=== PATIENT | female | born 1945 | race Caucasian/White ===

== ENCOUNTER → 2016-12-25 | Outpatient (CLI) | payer OTHER ==
[~2016-12-25] MED LIST: CHOL200027 PO; FOLI1TAB7 PO; HYDR200T5 PO; METH2.5T PO; MISCTAB78 PO; NAPR1TAB9 PO; OXYC-57 PO; PRED-301 PO; WARF2TAB PO
== END | disposition home or self-care (01) ==
LOC: C.RDSM 07:38
PROVIDERS: ATTEND Physical Medicine & Rehabilitation Sports Medicine
DX: M17.11 Unilateral primary osteoarthritis, right knee (principal)

== ENCOUNTER 2017-01-24 04:47 | Inpatient (IN) | payer OTHER ==
[2017-01-05 09:42] VITALS: BMI 38.0
--- NOTE | 2017-01-05 10:23 | PAT Medication Instructions ---
Service Date Jan 05, 2017. Current Home Medication List Cholecalciferol (Vitamin D-3), 1 TAB PO QAM Folic Acid (Folvite), 1 TAB PO QAM Hydroxychloroquine Sulfate (Plaquenil), 400 MG PO QAM Methotrexate (Methotrexate), 10 TABS PO WK Misc Natural Products (Osteo Bi-Flex Advanced Do), 1 TAB PO QAM Naproxen (Aleve), 220 MG PO DAILY PRN for Pain Prednisone (Prednisone), 5 MG PO QAM Medication Instructions For Your Scheduled Surgery - Hold the following medications 2 weeks prior to surgery: Misc Natural Products (Osteo Bi-Flex Advanced Do), 1 TAB PO QAM - Check with your prescriber regarding: Methotrexate (Methotrexate), 10 TABS PO WK Check with your surgeon regarding:: Naproxen (Aleve), 220 MG PO DAILY PRN for Pain - Hold the following medications the morning of surgery: Cholecalciferol (Vitamin D-3), 1 TAB PO QAM Folic Acid (Folvite), 1 TAB PO QAM - Take the following medications the morning of surgery with a sip of water: Prednisone (Prednisone), 5 MG PO QAM Hydroxychloroquine Sulfate (Plaquenil), 400 MG PO QAM If you have any questions please call us at [phone] or [phone] or [phone]
--- NOTE | 2017-01-05 11:10 | DIAGNOSTIC IMAGING REPORT ---
CHEST PREADMISSION(PA/LAT) CLINICAL HISTORY: Preoperative chest COMPARISON STUDY: No previous studies for comparison. FINDINGS: The cardiac and mediastinal contours are normal. There is no evidence of focal pulmonary consolidation. There is no evidence of failure. No pleural effusions are visualized.[ There is equivocal old left eighth and fracture. IMPRESSION: No active disease in the chest. Electronically signed by: Fernie Macias M.D. 01/05/2017 11:08 AM Dictated Date/Time: 01/05/2017 11:07 AM
--- NOTE | 2017-01-05 11:31 | DIAGNOSTIC IMAGING REPORT ---
LATERAL VIEW OF THE CERVICAL SPINE WITH FLEXION AND EXTENSION CLINICAL HISTORY: Rheumatoid arthritis. Preoperative study COMPARISON STUDY: No previous studies for comparison. FINDINGS: There are moderate multilevel degenerative changes most pronounced at the C5-6 level. No acute fractures are visualized on this lateral study. There is no instability on flexion or extension. IMPRESSION: Moderately advanced degenerative change. No evidence of instability on flexion or extension. Electronically signed by: Fernie Macias M.D. 01/05/2017 11:30 AM Dictated Date/Time: 01/05/2017 11:29 AM
[2017-01-05 11:52] LABS: BASO % 0.5 %; BASO ABS # 0.04 K/uL (0-0.2); COMPLETE YES; EOS % 1.4 %; IG% 0.2 %; LYMPH % 11.4 %; LYMPH ABS # 0.92 K/uL (1.2-3.4); MEAN CELL VOLUME 96.2 fL (80-100); MEAN CORPUSCULAR HEMOGLOBIN 30.9 pg (25-34); MEAN CORPUSCULAR HGB CONC 32.1 g/dl (32-36); MONO % 6.2 %; NEUT % 80.3 %; PLATELET COUNT 275 K/uL (130-400); RED BLOOD COUNT 4.47 M/uL (4.2-5.4); WHITE BLOOD COUNT 8.05 K/uL (4.8-10.8)
[2017-01-05 11:54] LABS: MANUAL MICROSCOPIC REQUIRED? NO; REVIEW REQ? NO; URINE APPEARANCE CLEAR (CLEAR); URINE BILIRUBIN NEG (NEG); URINE COLOR YELLOW; URINE EPITHELIAL CELL AUTO >30 /lpf (0-5); URINE NITRITE NEG (NEG); URINE PH 5.5 (4.5-7.5); URINE SPECIFIC GRAVITY 1.025 (1.000-1.030); UROBILINOGEN NEG (NEG)
[2017-01-05 11:59] LABS: BUN/CREATININE RATIO 23.6 (10-20); CREATININE 0.76 mg/dl (0.60-1.20)
[2017-01-05 12:01] LABS: PARTIAL THROMBOPLASTIN RATIO 1.1; PROTHROMBIN TIME (PATIENT) 10.4 SECONDS (9.0-12.0)
--- NOTE | 2017-01-12 15:14 | HISTORY & PHYSICAL EXAMINATION ---
DATE OF ADMISSION: 01/24/2017 CHIEF COMPLAINT: Right knee pain. HISTORY OF PRESENT ILLNESS: This 71-year-old white female presents to the office with complaints of right knee pain that she has had since February 2016. No specific injury. She previously had this knee scoped in 2006. Pain is worse with weightbearing. It is affecting her ADLs. She denies any catching or locking. No buckling. Pain is primarily over the medial aspect of the leg, but does radiate the anterior part as well. She has tried conservative care measures including ice, elevation, activity modification, cortisone injections, and viscosupplementation without lasting relief. She elects to proceed with surgical intervention in hopes of alleviating her pain. Preoperative imaging has been obtained. PAST MEDICAL HISTORY: Significant for rheumatoid arthritis, osteoarthritis, low back pain, and obesity. PREVIOUS SURGERIES: Right knee arthroscopy in 2006, laparotomy, left eye surgery, appendectomy, dental surgery, EGD and colonoscopy. ALLERGIES: KNOWN ALLERGY TO PRAVASTATIN, WHICH CAUSES MUSCLE AND BACK PAIN. CURRENT MEDICATIONS: Valacyclovir 1 gram p.r.n., methotrexate 2.5 mg 10 tablets p.o. weekly, folic acid 1 mg p.o. daily, prednisone 5 mg p.o. daily, vitamin D daily, Plaquenil 200 mg 2 tablets p.o. daily, and Aleve 220 mg p.r.n. SOCIAL HISTORY: The patient is . No tobacco use. Retired. Former smoker. No ETOH use. FAMILY HISTORY: Significant for heart disease, cancer and diabetes. REVIEW OF SYSTEMS: Significant for above stated conditions, otherwise unremarkable. PHYSICAL EXAMINATION: GENERAL: Well-developed and well-nourished elderly white female in no acute distress. Sitting on a bed. Alert and oriented. SKIN: Warm and dry with good turgor. No rashes or lesions. No ecchymosis or erythema. HEENT: Normocephalic and atraumatic. Eyes, PERRLA and EOMI. Nares patent bilaterally without turbinate enlargement. Oropharynx without erythema or exudate. No lesions noted. Uvula midline. Oral mucosa moist. Good dentition. Fillings are noted. HEART: RRR. No MGR. LUNGS: Clear to auscultation bilaterally. No crackles, rhonchi or wheezing. Good air movement. ABDOMEN: Obese. Bowel sounds present x4. Soft and nontender. No organomegaly. No masses. MUSCULOSKELETAL: Right knee evaluation reveals varus alignment. Focal discomfort with palpation over the medial joint line. She also has peripatellar discomfort. No lateral joint line discomfort. Stable collateral ligaments. No defect in the patellar tendon or quadriceps tendon. Full terminal extension. Flexion to greater than 110 degrees. Strength is 5/5 with fair quad tone. Ambulatory with an antalgic gait. NEUROLOGIC: Cranial nerves II through XII are intact. Gross sensation is intact across the right leg by soft touch. Peripheral pulses are 2+. DATA: Radiographic imaging previously obtained shows end-stage DJD of the right knee. Periarticular osteophytes, subchondral sclerosis, and joint space narrowing are present. IMPRESSION: Right knee end-stage degenerative joint disease. PLAN: Informed written consent to proceed with right total knee arthroplasty will be obtained. She has already had medical clearance from her PCP, Dr. Osullivan. Postoperative prescriptions for Percocet and Coumadin will be provided at discharge from the hospital. Anticipate discharge to home with home health services. She already has a walker and will obtain a cane. Preoperative lab work, EKG, and chest x-ray have been ordered.
[~2017-01-24] VITALS: Ht 154.9 cm; Wt 90.9 kg
[2017-01-24] VITALS (10 sets, daily range): BP systolic 92–129; BP diastolic 56–75; PULSE 58–70; TEMP 36.6–36.9; O2SAT 93–99; Ht 154.9 cm; Wt 90.9 kg
[~2017-01-24 04:47] MED LIST changes: -OXYC-57 PO; -WARF2TAB PO
[2017-01-24] MEDS ORDERED: CLONIDINE HCL 0.1 MG/24 HR TRANSDERM SYS TD SCH (06:00)
[2017-01-24] MEDS ORDERED: LACTATED RINGER'S 1000ML 1,000 ML IV SCH (06:00)
[2017-01-24] MEDS ORDERED: LACTATED RINGER'S 1000ML IV SCH (06:00)
[2017-01-24] MEDS ORDERED: TRANEXAMIC ACID INJ 1,000 MG in SODIUM CHLORIDE 0.9% 100ML 100 ML IV SCH ×2 (06:00→16:00)
[2017-01-24] MEDS ORDERED: ROPIVACAINE 5MG/ML 30 ML 150 MG, BUPIVACAINE/EPINEPHR 0.5% MPF 30 ML, KETOROLAC TROMETH... INFIL SCH ×7 (06:00)
[2017-01-24] MEDS ORDERED: HYDROCORTISONE IV 100 MG in SYRINGE 0 ML IV SCH (06:00)
[2017-01-24] MEDS ORDERED: CEFAZOLIN 2000 MG/60 ML D5W 60 ML IV SCH (06:00)
[2017-01-24] MEDS ORDERED: BUPIVACAINE 0.5 % 5 MG/1 ML PF 10ML VIAL ONE (06:19)
--- NOTE | 2017-01-24 06:25 | History & Physical Bridge Note ---
H&P Re-Evaluation Bridge Note: I have examined the patient, reviewed the History & Physical and in the interval since the performance of the History & Physical I have noted the following changes of clinical significance: reviewed consent.No changes noted
[2017-01-24] MEDS ORDERED: POVIDONE-IODINE OP SOLN 30 ML BTL ONE (06:28)
[2017-01-24] MEDS ORDERED: ORTHO JOINT ANESTHETIC ONE (06:28)
[2017-01-24] MEDS ORDERED: MIDAZOLAM HCL 1 MG/ML 2ML VIAL ONE (06:37)
[2017-01-24] MEDS ORDERED: FENTANYL CITRATE INJ 50 MCG/1 ML 2 ML VIAL ONE (06:37)
[2017-01-24] MEDS ORDERED: ONDANSETRON INJ 2 MG/ML 2 ML VIAL ONE (07:05)
[2017-01-24] MEDS ORDERED: PROPOFOL IV EMULSION 10 MG/ML 20 ML VIAL IV ONE ×2 (07:05→07:43)
[2017-01-24] MEDS ORDERED: LIDOCAINE HCL 2% 2 ML VIAL (20MG/ML) ONE (07:05)
[2017-01-24] MEDS ORDERED: HYDROCORTISONE SOD SUCCINATE 100 MG/2 ML VIAL ONE (07:05)
[2017-01-24] MEDS ORDERED: EpHEDrine SULFATE INJ 50 MG/ML AMP IV PRN (07:30)
[2017-01-24] MEDS ORDERED: FENTANYL CITRATE INJ 50 MCG/1 ML 2 ML VIAL IV PRN (07:30)
[2017-01-24] MEDS ORDERED: ONDANSETRON INJ 2 MG/ML 2 ML VIAL IV PRN ×2 (07:30→08:30)
[2017-01-24] MEDS ORDERED: ATROPINE SULFATE 0.1 MG/ML 5ML SYR IV PRN (07:30)
--- NOTE | 2017-01-24 08:20 | [facility] Post Operative Brief Note ---
Immediate Operative Summary Operative Date Jan 24, 2017. Pre-Operative Diagnosis Right Knee End-Stage Degenerative Joint Disease Post-Operative Diagnosis Right Knee End-Stage Degenerative Joint Disease Procedure(s) Performed Right Total Knee Arthroplasty Surgeon Dr. Shields Bridge Construction Inspector Surgeon(s) Dr. Gottlieb (Fellow)/ JUDE Guardado Estimated Blood Loss 25 ml Findings severe medial disease Fluids (cc crystalloids) 1200cc Specimens A. Right Knee Bone and Tissue Drains none Anesthesia spinal Complication(s) None Disposition Recovery Room / PACU
[2017-01-24] MEDS ORDERED: EpHEDrine SULFATE 50MG/5ML SYR ONE (08:24)
[2017-01-24] MEDS ORDERED: BISACODYL 10 MG SUPP PR PRN (08:30)
[2017-01-24] MEDS ORDERED: DiphenhydrAMINE HCL 50 MG/ML VIAL IV PRN (08:30)
[2017-01-24] MEDS ORDERED: ACETAMINOPHEN 325 MG TAB PO PRN (08:30)
[2017-01-24] MEDS ORDERED: METOCLOPRAMIDE HCL INJ 5 MG/ML 2 ML VIAL IV PRN (08:30)
[2017-01-24] MEDS ORDERED: ALUMINUM/MAGNESIUM/SIMETH (MAALOX MAX) 30 ML UDC PO PRN (08:30)
[2017-01-24] MEDS ORDERED: MoRPHine SULFATE 2 MG/ML CARP IV PRN (08:30)
[2017-01-24] MEDS ORDERED: MAGNESIUM HYDROXIDE SUSP 30 ML UDC PO PRN (08:30)
--- NOTE | 2017-01-24 08:44 | OPERATIVE REPORT ---
DATE OF OPERATION: 01/24/2017 PREOPERATIVE DIAGNOSIS: Osteoarthritis, right knee medial compartment with varus and flexion deformity. POSTOPERATIVE DIAGNOSIS: Same. OPERATION PERFORMED: Cemented right total knee replacement. SURGEON: Dr. Shields. FLUORESCENT LAMP REPLACER: Bull. SECOND FLUORESCENT LAMP REPLACER: Brandon Prabhakar PA-C. ESTIMATED BLOOD LOSS: 25 mL. CRYSTALLOID: 1200 mL. PERIOPERATIVE SITUATION: Medically cleared female with intractable knee pain has failed conservative management and wishes to proceed with surgical treatment. Consent verified, list reemphasized. SUMMARY OF IMPLANTS: Size 3 posterior cruciate substituting femur, size 3 rotating tibial platform tray, oval domed 3 pegged patella size 38, tibial insert rotating platform, posterior cruciate stabilized size 3 12.5 mm thick, 2 bags of Palacos G cement, his is a J[employer]J rotating platform. PROCEDURE: The patient appropriately identified, site verified, consent verified, 2 grams of Ancef confirmed as being given and a gram of TXA confirmed as being given. The right lower extremity was prepped and draped in usual routine fashion. Total tourniquet time was roughly 50 minutes, 55 minutes at most. Midline exposure utilized. Parapatellar arthrotomy performed. Synovectomy completed. Distal femur resected 14. Proximal tibia resected 4. Extension gap was excellent. Femur sized between a 4 and 3, was measured 4 cut 3. No notching. The flexion gap was excellent. The tibia was sized to a 3 as well. The box cut made and a size 3 femur fit well. Tibia broached and reamed to a 3. Trial reduction with a 12.5 spacer revealed excellent stability in mid range, full extension and full flexion. Patella tracked well. The patella was then sized to a 38, resection made leaving 16 mm and seating hole was made and the trial fit well. The trials were then removed. The wound irrigated with Betadine Pulsavac and then injected with Orthomix and after the cement was ready, the implants were cemented into position. After 12 minutes, the tourniquet deflated. After additional 2 minutes, the knee flexed, trial liner removed. The knee irrigated. No cement needed to be removed. There was no major bleeding after the tourniquet was deflated. Wound irrigated with Betadine Pulsavac and then permanent liner seated. The knee reduced and closed with #1 Ethibond, #1 Vicryl, 2-0 Vicryl and stainless steel clips. Appropriate dressing applied. The patient transferred to recovery room in satisfactory condition having tolerated the procedure well. I attest to the content of the Intraoperative Record and any orders documented therein. Any exception s are noted below.
[2017-01-24] MEDS: MULTIVITAMIN TAB PO SCH (09:00)
[2017-01-24] MEDS: DOCUSATE SODIUM 100 MG CAP PO SCH ×2 (09:00→21:07)
[2017-01-24] MEDS: PANTOprazole SOD 40 MG TAB PO SCH (09:00)
--- NOTE | 2017-01-24 09:05 | DIAGNOSTIC IMAGING REPORT ---
R KNEE 1 OR 2 VIEWS ROUTINE CLINICAL HISTORY: 71 years-old Female presenting with AP/LATERAL IN PACU RIGHT KNEE, right TKA. TECHNIQUE: Frontal and lateral views of the right knee were obtained. COMPARISON: 12/25/2016. FINDINGS: Interval postsurgical changes of total right knee arthroplasty with patellar resurfacing. Intra-articular and soft tissue emphysema with overlying skin david noted. No acute fracture. No malalignment. No hardware complication. IMPRESSION: Expected postsurgical appearance status post total right knee arthroplasty with patellar resurfacing. Electronically signed by: Oleg Reese M.D. 01/24/2017 9:03 AM Dictated Date/Time: 01/24/2017 9:02 AM
--- NOTE | 2017-01-24 09:31 | Anesthesiology Progress Note ---
Anesthesia Post Op Note Date & Time Jan 24, 2017 at 09:31 Vital Signs Pain Intensity: 0 Vital Signs Past 12 Hours Date Time Temp Pulse Resp B/P (MAP) Pulse Ox O2 Delivery O2 Flow Rate FiO2 01/24/17 09:10 37.0 64 16 102/58 95 Nasal Cannula 2 01/24/17 09:00 61 16 104/59 95 Nasal Cannula 2 01/24/17 08:50 61 16 103/58 95 Nasal Cannula 2 01/24/17 08:40 62 12 102/60 96 Nasal Cannula 2 01/24/17 08:31 36.9 68 12 91/64 96 Oxymask 10 01/24/17 05:28 95 Room Air Notes Mental Status: alert / awake / arousable, participated in evaluation Pt Amnestic to Procedure: Yes Nausea / Vomiting: adequately controlled Pain: adequately controlled Airway Patency, RR, SpO2: stable & adequate BP & HR: stable & adequate Hydration State: stable & adequate Neuraxial Anesthesia: was administered, sensory block is resolving Anesthetic Complications: no major complications apparent
[2017-01-24] MEDS ORDERED: MoRPHine SULFATE 4 MG/ML 1 ML CARP\\VIAL IV PRN (11:00)
[2017-01-24] MEDS ORDERED: D5W AND 1/2NSS + 20MEQ KCL 1,000 ML IV SCH (11:00)
[2017-01-24] MEDS: KETOROLAC TROMETHAMINE 15 MG/ML VIAL IV. SCH ×3 (11:54→22:10)
--- NOTE | 2017-01-24 13:03 | [facility] Operative Report ---
Operative Report Operative Date Jan 24, 2017. Pre-Operative Diagnosis Right Knee End-Stage Degenerative Joint Disease Post-Operative Diagnosis Right Knee End-Stage Degenerative Joint Disease Procedure(s) Performed Right Total Knee Arthroplasty Surgeon Dr. Shields Valet Manager Surgeon(s) Dr. Gottlieb (Fellow)/ JUDE Marrufo Estimated Blood Loss 25 ml Findings Right knee DJD Fluids 1200cc Specimens A. Right Knee Bone and Tissue Drains none Anesthesia spinal Complication(s) None Disposition Recovery Room / PACU Indications This 71-year-old white female presented the office with complaints of intractable right knee pain. She had tried conservative care measures including activity modification, oral pain medication, oral anti-inflammatories , and injection therapy without relief. She elected to proceed with surgical intervention after being educated about potential risks and outcomes. Preoperative imaging was obtained. Description of Procedure Patient was administered a spinal anesthetic and then taken to the operating room where she was given sedation. She was prepped and draped in usual sterile fashion. Please see Dr. Shields's operative report for specifics of the procedure. I was present for the entire case from initial patient positioning through final wound closure. Assistance was provided in tissue traction, hemostasis, trial implant placement, final implant placement, and final wound closure. Patient was taken to the recovery room in satisfactory condition. I attest to the content of the Intraoperative Record and any orders documented therein. Any exceptions are noted below.
--- NOTE | 2017-01-24 13:40 | Progress Note ---
Progress Note Date of Service Jan 24, 2017. Progress Note Patient sitting up in bed denies any chest pain shortness of breath fever chills nausea vomiting or headache. Vital signs are stable she's afebrile. Wound dressing clean and dry. Neurovascular check is normal. Postoperative x-rays look excellent. Assessment doing well continue with postop care pathway. Eating well Hep-Lock IV. Dictated not read.
[2017-01-24] MEDS: FERROUS GLUCONATE 324 MG TAB PO SCH ×2 (14:07→18:07)
[2017-01-24] MEDS ORDERED: INFLUENZA VACCINE HIGH DOSE 65+ 0.5 ML SYR IM. ONE (14:30)
[2017-01-24] MEDS ORDERED: INFLUENZA ADMINISTRATION CHARGE ONE (14:30)
[2017-01-24] MEDS: CEFAZOLIN IV 2,000 MG in DEXTROSE 5% 50ML 50 ML IV SCH ×2 (15:08→22:09)
[2017-01-24] MEDS: OXYCODONE HCL IR 5 MG TAB (IMMEDIATE RELEASE) PO PRN (15:33)
[2017-01-24] MEDS ORDERED: WARFARIN SOD 5 MG TAB PO ONE (16:00)
[2017-01-25] MEDS: OXYCODONE HCL IR 5 MG TAB (IMMEDIATE RELEASE) PO PRN ×2 (01:18→09:31)
[2017-01-25 03:08] VITALS: BP 106/61; PULSE 54; TEMP 36.8; O2SAT 93
[2017-01-25] MEDS: KETOROLAC TROMETHAMINE 15 MG/ML VIAL IV. SCH (05:07)
[2017-01-25 06:30] LABS: HEMATOCRIT 35.4 % (37-47); MEAN CELL VOLUME 94.1 fL (80-100); MEAN CORPUSCULAR HEMOGLOBIN 31.1 pg (25-34); MEAN CORPUSCULAR HGB CONC 33.1 g/dl (32-36); MEAN PLATELET VOLUME 8.7 fL (7.4-10.4); PLATELET COUNT 226 K/uL (130-400); RED BLOOD COUNT 3.76 M/uL (4.2-5.4); WHITE BLOOD COUNT 13.75 K/uL (4.8-10.8)
[2017-01-25 06:38] LABS: PROTHROMBIN TIME (PATIENT) 10.3 SECONDS (9.0-12.0)
[2017-01-25 07:02] VITALS: BP 125/83; PULSE 54; TEMP 36.9; O2SAT 94
[2017-01-25 07:05] LABS: CALCIUM 8.6 mg/dl (8.5-10.1); CREATININE 0.87 mg/dl (0.60-1.20); POTASSIUM 4.4 mmol/L (3.5-5.1)
--- NOTE | 2017-01-25 07:06 | PROGRESS NOTE ---
DATE: 01/25/2017 Postop day 1 status post right total knee replacement. The patient is doing well, has no major issues. Vital signs are stable. She is afebrile. Laboratory work is pending. Wound dressing clean, dry and intact. Neurovascular check femoral sciatic nerve is good. Calf is nontender. Can do straight leg raise. ASSESSMENT: Doing well. Discharge today after PT, OT. Discharge on 4 mg of Coumadin if INR is less than 1.4; if INR is greater than 1.4, discharge on 2 mg.
--- NOTE | 2017-01-25 07:10 | DISCHARGE SUMMARY ---
DISCHARGE DATE: 01/25/17 CHIEF COMPLAINT: Right knee pain. HISTORY OF PRESENT ILLNESS: A 71-year-old female admitted for elective right total knee replacement. She has no major issues. She did well overnight, is ambulating. Has good control of her leg. Her pain is well managed. She denies nausea, vomiting, chest pain, shortness of breath, fever or chills. PAST MEDICAL HISTORY: Rheumatoid arthritis, osteoarthritis, low back pain. PAST SURGICAL HISTORY: Include knee arthroscopy, laparotomy, eye surgery, appendectomy, dental surgery, EGD and colonoscopy. ALLERGIES: PRAVASTATIN which causes muscle and back pain. ADMISSION MEDICATIONS: Include valacyclovir, methotrexate, folic acid, prednisone, vitamin D, Plaquenil and Aleve. She will continue all of those medications with the exception of Aleve. She will have Coumadin to keep INR 1.8-2.2. She will have p.r.n. narcotics prescription for medication control of pain. SOCIAL HISTORY: Reveals she is . No tobacco or alcohol use. She is retired. She is a former smoker. No ETOH use. FAMILY HISTORY: Remarkable for heart disease, cancer, diabetes. REVIEW OF SYSTEMS: As noted above. ASSESSMENT: Doing well status post right total knee replacement. We will discharge today after a.m. PT OT. Discharge on 4 mg Coumadin if INR is less than 1.5; 2 mg greater than 1.5. Follow up in 2 weeks. Keep INR 1.8-2.2.
[2017-01-25] MEDS ORDERED: DEXAMETHASONE INJ 10 MG in SYRINGE 0 ML IV ONE (07:30)
[2017-01-25] MEDS ORDERED: WARFARIN SOD 5 MG TAB PO ONE (08:00)
[2017-01-25] MEDS ORDERED: WARF2TAB PO (08:01)
[2017-01-25] MEDS ORDERED: OXYC-57 PO (08:02)
--- NOTE | 2017-01-25 08:04 | Discharge Instructions ---
Discharge Instructions Date of Service Jan 25, 2017. Admission Reason for Admission: Right Knee Degenerative Joint Disease Discharge Discharge Diagnosis / Problem: Right knee s/p total knee replacement Discharge Goals Goal(s): Decrease discomfort, Improve function, Increase independence Activity Recommendations Activity Limitations: as noted below Lifting Limitations: gradually increase as tolerated Exercise/Sports Limitations: until after follow-up appointment Shower/Bathe: keep incision dry Driving or Machine Use: No driving until cleared by Dr. Shields Weightbearing Status: Right weightbearing (as tolerated) . Instructions / Follow-Up Instructions / Follow-Up New Medicine: * You will likely be taking one or more of these medications: 1. Percocet - Take, as directed, when you need it, every four to six hours to control your pain. 2. Coumadin - Thins your blood to lessen the chance of forming a blood clot. The dose of this is different for each person and is based on your blood tests that are done twice a week. * The most common side effects of pain medicine and iron are nausea and constipation. If nausea or constipation is too much of a problem or if you have any questions about your new medicines or doses, call [facility] at . We will try to help you manage these issues. VERY IMPORTANT TO READ AND REVIEW" Blood Clots and Blood Thinning Medicine: * You are given Coumadin during the immediate post-operative period to lessen the risk of blood clots forming in your legs and/or lungs. Coumadin is usually given for six weeks after surgery. * The prescription is for 2 mg tablets. At discharge, you should understand your dose and take it all at the same time every day, preferably after dinner. * You need to get your blood checked 1 - 2 times per week for six weeks or as directed. * If your dose needs to change, we will call you. Do not take your medication on the day of the blood test until we call you. Pain: * The immediate post-operative period after knee replacement surgery is often quite painful. * You are given a prescription for pain medicine. You should take it, as directed, when you need it, especially before physical therapy and before going to bed. Pain that interferes with sleep is very common and can last several months. * You will likely need pain medicine for the first four to six weeks. It will not stop all of the pain. The pain will lessen and as you feel better, you may change to milder pain medicine such as Tylenol. * The most common side effects of pain medicine are nausea and constipation, so don't take more than you need. Physical Therapy: * You will have physical therapy two or three times each week for four to six weeks after your surgery in order to regain your knee range of motion and to retrain your knee to work properly. * It is just as important to make sure you are getting your knee perfectly straight as it is to regain your knee bend. * Taking a pain pill an hour before therapy can help you have a more productive and comfortable therapy session if needed. Home Exercise: * You were shown a series of exercises (heel props, heel slides, etc.) in the hospital. Do these exercises three to four times each day including the exercises you were shown in physical therapy. Walking: * Get up and walk several times each day. For the first four weeks, try not to stand or walk for more than one hour at a time. If you do stand or walk for more than one hour, you will not hurt anything, but your knee and leg will likely swell. * As you feel comfortable, you may change from the walker or crutches to a cane and then to independent walking. SELF CARE INSTRUCTIONS AFTER TOTAL KNEE REPLACEMENT A. You may need to continue a physical therapy program after discharge from the hospital. There are several options available to you. Your doctor will assist you in selecting the best one for you. 1. An out-patient facility 2 to 3 times a week for therapy or home therapy. 2. Continue working on all exercises taught to you in the hospital. Your goals should be to increase bending of your knee to 90 degrees and beyond and to fully straighten your knee. B. You may progress at your own pace from walking with a walker or crutches to a cane; then to no assistive devices. C. Make walking a part of your daily routine. Be up as much as comfortable with rest periods throughout the day. Rest with leg elevation is very important. Use the ice wrap frequently for the first 3-4 weeks. D. There are no restrictions on activities. You may ride in a car, shop, participate in shop firer/fireman and all social activities. E. Wear the long elastic stockings (MALLORIE hose) 20 hours a day for six weeks after surgery. They can be removed several times a day for laundering and for a shower. F. Do not place a pillow behind your knee when resting. A pillow at your ankle is okay. VERY IMPORTANT TO READ AND REVIEW A. Take Coumadin, Aspirin or Lovenox (blood thinning medications) as directed by your doctor. If on Coumadin, have a pro-time (blood test) drawn according to your doctor's instructions. This will tell the doctor how well the Coumadin is thinning your blood. 1. YOU WILL BE GIVEN AN ORDER AT DISCHARGE FOR PT/INR (BLOOD WORK). PLEASE HAVE THIS DONE INSTRUCTED. PLEASE CALL OUR OFFICE AFTER YOUR BLOODWORK IS COMPLETE SO WE CAN TRACK YOUR RESULTS. IF YOU ARE GOING TO OUTPATIENT PHYSICAL THERAPY, YOU WILL NEED TO GO TO OUTPATIENT TESTING TO HAVE IT DRAWN. B. There are a few signs you need to watch for after you are home. Call [facility] if you notice any of the followin. Increased severe knee pain. Some pain is expected especially when you exercise. 2. Increased swelling in your leg or knee; pain or swelling of the calf muscle in either lower leg. 3. Any fluid drainage from the incision. 4. Shortness of breath or chest pain. C. Please call [facility] at if you have any concerns or questions about your operation or recovery. The doctor or his nurse will return your call promptly. D. You must take antibiotics before dental work, bladder, bowel or other surgery. Call the office to obtain a prescription at least 2 days prior to your appointment. * CALL IF INCREASED PAIN, REDNESS, DRAINAGE OR FEVER GREATER THAT 101. * Sutures should be removed 12-14 days after surgery unless you are on chronic steriods, then it will be 14-18 days after surgery. Call your doctor if: * Temperature above 101 degrees F. * Pain not relieved by pain medicine ordered. * Increased drainage or redness from incision. * Notify your doctor with any questions or concerns. Current Hospital Diet Patient's current hospital diet: Regular Diet Discharge Diet Recommended Diet: Regular Diet Procedures Procedures Performed: Right Total Knee Arthroplasty Pending Studies Studies pending at discharge: no Medical Emergencies . Who to Call and When: Medical Emergencies: If at any time you feel your situation is an emergency, please call 911 immediately. . Non-Emergent Contact Non-Emergency issues call your: Primary Care Provider, Surgeon Call Non-Emergent contact if: temperature is above 101, wound has increased drainage, wound has increased redness, wound has increased pain, you have any medication questions . "Provider Documentation" section prepared by Brandon Prabhakar PA-C. . VTE Core Measure Inpt VTE Proph given/why not?: Warfarin (Coumadin), T.E.D. Stockings, SCD's [place] Drug Monitoring Program Search Results: no issues identified
--- NOTE | 2017-01-25 08:16 | Anesthesiology Progress Note ---
Anesthesia Post Op Note Date & Time Jan 25, 2017 at 08:15 Vital Signs Pain Intensity: 5.0 Vital Signs Past 12 Hours Date Time Temp Pulse Resp B/P (MAP) Pulse Ox O2 Delivery O2 Flow Rate FiO2 01/25/17 07:02 36.9 54 16 125/83 (97) 94 Room Air 01/25/17 03:08 36.8 54 16 106/61 (76) 93 Room Air 01/24/17 23:10 36.9 70 16 92/56 (68) 94 Room Air 01/24/17 21:15 95 Room Air Notes Mental Status: alert / awake / arousable, participated in evaluation Pt Amnestic to Procedure: Yes Nausea / Vomiting: adequately controlled Pain: adequately controlled Airway Patency, RR, SpO2: stable & adequate BP & HR: stable & adequate Hydration State: stable & adequate Neuraxial Anesthesia: was administered, sensory block resolved Anesthetic Complications: no major complications apparent
--- NOTE | 2017-01-25 08:27 | Orthopedic Progress Note ---
Orthopedic Progress Note Date of Service Jan 25, 2017. Subjective Post OP Day: 1 Reports: feeling well, pain controlled w PO medications, Denies: complaints, chest pain, SOB, nausea / vomiting, light headedness, calf pain Additional Notes: States she already did a few exercises this morning. Objective calves soft nontender, N/V intact, capillary refill less than 2 sec., dressing C /D/I, incision C/D/I, A&O x3, toes mobile, CMS intact Able to do a SLR. No active drainage. Expected edema Right knee. Date Time Temp Pulse Resp B/P (MAP) Pulse Ox O2 Delivery O2 Flow Rate FiO2 01/25/17 07:02 36.9 54 16 125/83 (97) 94 Room Air 01/25/17 03:08 36.8 54 16 106/61 (76) 93 Room Air 01/24/17 23:10 36.9 70 16 92/56 (68) 94 Room Air 01/24/17 21:15 95 Room Air 01/24/17 19:53 36.8 58 16 108/65 (79) 95 Nasal Cannula 2.0 01/24/17 19:40 Nasal Cannula 2.0 01/24/17 15:30 Room Air 01/24/17 15:17 36.6 62 20 119/73 (88) 93 Room Air 01/24/17 12:30 36.6 59 19 116/72 (87) 94 Nasal Cannula 2.0 01/24/17 11:32 58 16 129/74 (92) 96 2.0 01/24/17 10:30 60 16 123/74 (90) 99 Nasal Cannula 2.0 01/24/17 10:00 60 16 122/75 (91) 95 Nasal Cannula 2.0 01/24/17 09:30 Nasal Cannula 2.0 01/24/17 09:30 36.9 63 18 119/69 (86) 93 Nasal Cannula 2.0 01/24/17 09:30 Nasal Cannula 01/24/17 09:10 37.0 64 16 102/58 95 Nasal Cannula 2 01/24/17 09:00 61 16 104/59 95 Nasal Cannula 2 01/24/17 08:50 61 16 103/58 95 Nasal Cannula 2 01/24/17 08:40 62 12 102/60 96 Nasal Cannula 2 01/24/17 08:31 36.9 68 12 91/64 96 Oxymask 10 Laboratory Results 24 Hours: Test 01/25/17 05:54 Hematocrit 35.4 % Hemoglobin 11.7 g/dL Prothromb Time International Ratio 1.0 Prothrombin Time 10.3 SECONDS Assessment & Plan Assessment: Right knee s/p total knee arthroplasty Plan: PT/OT today Anticipate D/C to home today with home health coumadin per nomogram f/u in the office in 2 weeks. dressing changed this morning-wound looks very good. Discharge Planning Discharge Planning: home with home health Pain Management: Percocet DVT Prophylaxis: TEDs, SCDs, Coumadin Therapy: Physical Therapy, Occupational Therapy
[2017-01-25] MEDS ORDERED: HYDROXYCHLOROQUINE SULFATE 200 MG TAB PO SCH (09:00)
[2017-01-25] MEDS: FERROUS GLUCONATE 324 MG TAB PO SCH (09:26)
[2017-01-25] MEDS: MULTIVITAMIN TAB PO SCH (09:27)
[2017-01-25] MEDS: DOCUSATE SODIUM 100 MG CAP PO SCH (09:27)
[2017-01-25] MEDS: PANTOprazole SOD 40 MG TAB PO SCH (09:30)
[2017-01-25 10:44] VITALS: BP 124/75; PULSE 62; TEMP 36.8; O2SAT 93
[2017-01-25 11:29] VITALS: BP 124/75; PULSE 62; TEMP 36.8; O2SAT 93
== END 2017-01-25 13:20 | disposition home health service (06) | DRG 470 ==
LOC: C.ACU 04:47 → C.3E 06:20 → ENRESERV 08:59
PROVIDERS: ADMIT Physical Medicine & Rehabilitation Sports Medicine; ATTEND Physical Medicine & Rehabilitation Sports Medicine
PROC: 0SRC0J9 Replacement of Right Knee Joint with Synthetic Substitute, Cemented, Open Approach (ICD-10-PCS; principal; 2017-01-24 07:00)
DX: M17.11 Unilateral primary osteoarthritis, right knee (principal); E66.9 Obesity, unspecified; Z79.899 Other long term (current) drug therapy; Z79.52 Long term (current) use of systemic steroids; Z68.37 Body mass index [BMI] 37.0-37.9, adult

== ENCOUNTER → 2017-04-02 | Outpatient (CLI) | payer OTHER ==
[~2017-04-02] MED LIST changes: -FOLI1TAB7 PO; +FOLI1TAB8 PO; -NAPR1TAB9 PO; +OXYC-57 PO; +WARF2TAB PO
== END | disposition home or self-care (01) ==
LOC: C.RDSM 10:36
PROVIDERS: ATTEND Physical Medicine & Rehabilitation Sports Medicine
DX: M17.11 Unilateral primary osteoarthritis, right knee (principal)